=== PATIENT | male | born 1955 | race Caucasian/White ===

== ENCOUNTER 2016-09-06 09:59 | Observation (INO) | payer OTHER ==
[2016-09-06] VITALS (8 sets, daily range): BP systolic 122–141; BP diastolic 71–86; PULSE 77–90; RESP 14–22; TEMP 97.9–98.1; O2SAT 91–100
[~2016-09-06] VITALS: Ht 177.8 cm; Wt 85.0 kg
--- NOTE | 2016-09-06 11:26 | PD ---
HPI Chief Complaint: Cold / Flu Symptoms Time Seen by Provider: 11:10 Travel History International Travel<30 days: No Contact w/Intl Traveler<30days: No Traveled to known affect area: No History of Present Illness HPI 61-year-old male came to the emergency room with history of shortness of breath and chest pain. Says that at 4 in the morning today he was woken up by a violent coughing episode. Since then he has been short of breath especially on exertion associated with substernal chest pain. He has never had these symptoms in the past. He rates the pain 4 out of 10 in its a dull ache. Nothing makes the pain better or worse. Patient says that he is from [place] and they came to spend the winter here 2 weeks ago. He drove for 3 days from [place] in order to get here. No history of leg swelling or leg pain. Patient has history of high cholesterol and hypertension. No history of coronary artery disease. No history of stress test or any other workup for coronary artery disease in the past. He is not a smoker. 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 He last drank 11 PM last night. Oxygen saturation was 95% on room air in triage. COUNT INCLUDES THE [facility] Past Medical History Narrative Medical List of his past medical history as reviewed from the nursing note. High Cholesterol: Yes Hypertension: Yes Social History Alcohol Use: Yes (heavy drinker for 20-24 years) Tobacco Use: No Allergies-Medications (Allergen,Severity, Reaction): Coded Allergies: No Known Allergies (Unverified , 09/06/16) Comments No known drug allergies. Reported Meds & Prescriptions Reported Meds & Active Scripts Active Reported Lisinopril 10 Mg Tab 10 Mg PO DAILY Pravastatin 20 Mg Tab 20 Mg PO DAILY Inderal LA 24 HR (Propranolol HCl) 60 Mg Cap 60 Mg PO DAILY Narrative Medication I reviewed patient's medications with him. Awaiting for the nurse to do medical reconciliation. Review of Systems Except as stated in HPI: all other systems reviewed are Neg Physical Exam Narrative GENERAL: Awake, alert, anxious, mild distress SKIN: Warm and dry. HEAD: Atraumatic. Normocephalic. EYES: Pupils equal and round. No scleral icterus. No injection or drainage. ENT: No nasal bleeding or discharge. Mucous membranes pink and moist. NECK: Trachea midline. No JVD. CARDIOVASCULAR: Regular rate and rhythm. No murmur appreciated. RESPIRATORY: No accessory muscle use. Clear to auscultation. Breath sounds equal bilaterally. GASTROINTESTINAL: Abdomen soft, non-tender, nondistended. Hepatic and splenic margins not palpable. MUSCULOSKELETAL: No obvious deformities. No clubbing. No cyanosis. No edema. NEUROLOGICAL: Awake and alert. No obvious cranial nerve deficits. Motor grossly within normal limits. Normal speech. Fine tremors PSYCHIATRIC: Appropriate mood and affect; insight and judgment normal. Data Data Last Documented VS Vital Signs Date Time Temp Pulse Resp B/P Pulse Ox O2 Delivery O2 Flow Rate FiO2 09/06/16 12:38 77 22 125/78 99 Nasal Cannula 2.0 128/74 09/06/16 10:01 98.1 Orders Electrocardiogram (09/06/16 10:29) Basic Metabolic Panel (Bmp) (09/06/16 11:32) Ckmb (Isoenzyme) Profile (09/06/16 11:32) Complete Blood Count With Diff (09/06/16 11:32) Magnesium (Mg) (09/06/16 11:32) Prothrombin Time / Inr (Pt) (09/06/16 11:32) Act Partial Throm Time (Ptt) (09/06/16 11:32) Troponin I (09/06/16 11:32) Chest, Single Ap (09/06/16 11:32) Ecg Monitoring (09/06/16 11:32) Bilateral Bp Monitoring (09/06/16 11:32) Iv Access Insert/Monitor (09/06/16 11:32) Oximetry (09/06/16 11:32) Oxygen Administration (09/06/16 11:32) Sodium Chloride 0.9% Flush (Ns Flush) (09/06/16 11:45) Ct Pulmonary Angiogram (09/06/16 ) CKMB (09/06/16 13:30) CKMB% (09/06/16 13:30) Iohexol 350 Inj (Omnipaque 350 Inj) (09/06/16 15:00) Admit Order (Ed Use Only) (09/06/16 15:30) Labs Laboratory Tests Test 09/06/16 13:30 Prothrombin Time 11.6 SEC Prothromb Time International 1.0 RATIO Ratio Activated Partial 24.7 SEC Thromboplast Time Sodium Level 135 MEQ/L Potassium Level 3.9 MEQ/L Chloride Level 99 MEQ/L Carbon Dioxide Level 24.0 MEQ/L Anion Gap 12 MEQ/L Blood Urea Nitrogen 7 MG/DL Creatinine 0.87 MG/DL Estimat Glomerular Filtration 90 ML/MIN Rate Random Glucose 100 MG/DL Calcium Level 8.2 MG/DL Magnesium Level 1.7 MG/DL Total Creatine Kinase 148 U/L Creatine Kinase MB 0.5 NG/ML Troponin I LESS THAN 0.02 NG/ML White Blood Count 13.6 TH/MM3 Red Blood Count 4.17 MIL/MM3 Hemoglobin 13.7 GM/DL Hematocrit 39.3 % Mean Corpuscular Volume 94.4 FL Mean Corpuscular Hemoglobin 32.9 PG Mean Corpuscular Hemoglobin 34.9 % Concent Red Cell Distribution Width 12.8 % Platelet Count 160 TH/MM3 Mean Platelet Volume 8.5 FL Neutrophils (%) (Auto) 88.3 % Lymphocytes (%) (Auto) 5.5 % Monocytes (%) (Auto) 6.0 % Eosinophils (%) (Auto) 0.0 % Basophils (%) (Auto) 0.2 % Neutrophils # (Auto) 12.0 TH/MM3 Lymphocytes # (Auto) 0.7 TH/MM3 Monocytes # (Auto) 0.8 TH/MM3 Eosinophils # (Auto) 0.0 TH/MM3 Basophils # (Auto) 0.0 TH/MM3 CBC Comment DIFF FINAL Differential Comment MDM Medical Decision Making Medical Screen Exam Complete: Yes Emergency Medical Condition: Yes Medical Record Reviewed: Yes Interpretation(s) Twelve-lead EKG was reviewed by me. Normal sinus rhythm, normal axis, nonspecific ST-T wave changes. Heart rate of 77 bpm. Differential Diagnosis ACS, non-STEMI, PE, pneumonia, aspiration pneumonia Narrative Course 12:05 PM given the fact that patient had a long distance travel not too long ago PE is high on my list. I have ordered pulmonary angiogram. Awaiting for the blood test results and the CAT scan to be done and resulted. Patient is a high risk for alcohol withdrawal as well. He is not tachycardic and hypertensive currently however. However he does have some tremors. I'll watch him and if he does getting worse I will give him some benzo. I've explained this to the patient and he understands. 3:03 PM all the blood test results finally came back. Awaiting for the CAT scan to be done and resulted. Patient has leukocytosis with some left shift. Chest x-rays within normal limit. 3:[address] scan is negative for PE or pneumonia. I will admit him for chest pain rule out ACS and the chest pain center. Patient is not having any symptoms of withdrawal. He is comfortable with the admission. Procedures EKG Prior to Arrival: Yes Diagnosis Primary Impression: Chest pain Qualified Code: R07.9 - Chest pain, unspecified type Admitting Information Admitting Physician Requests: Observation Tulio Robbins MD Sep 06, 2016 11:26
[2016-09-06] MEDS ORDERED: SODIUM CHLORIDE 0.9% FLUSH 5 ML FLUSH IVF PRN (11:45)
[2016-09-06] MEDS ORDERED: LISI10TA3 PO (12:19)
[2016-09-06] MEDS ORDERED: PROP60 PO (12:19)
[2016-09-06] MEDS ORDERED: PRAV20TA2 PO (12:19)
--- NOTE | 2016-09-06 12:37 | RADRPT ---
EXAM DATE/TIME: 09/06/2016 11:41 [facility] COMPARISON: No previous studies available for comparison. INDICATIONS : Short of breath and coughing for one day, chest discomfort MEDICAL HISTORY : None. SURGICAL HISTORY : None. ENCOUNTER: Initial ACUITY: 1 day PAIN SCORE: 4/10 LOCATION: Bilateral chest FINDINGS: A single view of the chest demonstrates the lungs to be symmetrically aerated without evidence of mas s, infiltrate or effusion. The cardiomediastinal contours are unremarkable. Osseous structures are intact. CONCLUSION: No acute disease. There is no evidence of pneumonia. Jalen Dalal MD on September 06, 2016 at 12:35 Board Certified Radiologist. This report was verified electronically.
[2016-09-06 14:04] LABS: BASOPHIL % 0.2 % (0.0-2.0); HEMATOCRIT 39.3 % (39.0-51.0); HEMO FLAGS DIFF FINAL; LYMPH % 5.5 % (9.0-44.0); LYMPHOCYTE # 0.7 TH/MM3 (1.0-4.8); MEAN CELL VOLUME 94.4 FL (80.0-100.0); MEAN CORPUSCULAR HEMOGLOBIN 32.9 PG (27.0-34.0); MEAN CORPUSCULAR HGB CONC 34.9 % (32.0-36.0); NEUT % 88.3 % (16.0-70.0); PLATELET COUNT 160 TH/MM3 (150-450); RED BLOOD COUNT 4.17 MIL/MM3 (4.50-5.90); RED CELL DISTRIBUTION WIDTH 12.8 % (11.6-17.2); WHITE BLOOD COUNT 13.6 TH/MM3 (4.0-11.0)
[2016-09-06 14:06] LABS: APTT (PATIENT) 24.7 SEC (24.3-30.1); PROTHROMBIN TIME - PATIENT 11.6 SEC (9.8-11.6)
[2016-09-06 14:36] LABS: ANION GAP 12 MEQ/L (5-15); BLOOD UREA NITROGEN 7 MG/DL (7-18); CHLORIDE 99 MEQ/L (98-107); GLOMERULAR FILTRATION RATE 90 ML/MIN (>89); MAGNESIUM 1.7 MG/DL (1.5-2.5); POTASSIUM 3.9 MEQ/L (3.5-5.1); SODIUM (NA) 135 MEQ/L (136-145)
[2016-09-06 14:40] LABS: CREATINE KINASE 148 U/L (39-308)
[2016-09-06 14:52] LABS: CKMB 0.5 NG/ML (0.5-3.6)
[2016-09-06] MEDS ORDERED: IOHEXOL 350 MG/ML 10 ML VIAL (for RAD DIAG) IV ONE (15:00)
--- NOTE | 2016-09-06 15:16 | RADRPT ---
EXAM DATE/TIME: 09/06/2016 14:53 [facility] COMPARISON: No previous studies available for comparison. INDICATIONS : Coughing and chest discomfort today. IV CONTRAST: 50 cc Omnipaque 350 (iohexol) IV RADIATION DOSE: 11.85 CTDIvol (mGy) MEDICAL HISTORY : Hypertension. SURGICAL HISTORY : None. ENCOUNTER: Initial ACUITY: 1 day PAIN SCALE: 5/10 LOCATION: chest TECHNIQUE: Volumetric scanning of the chest was performed using a pulmonary embolism protocol MIP images were re constructed. Using automated exposure control and adjustment of the mA and/or kV according to patien t size, radiation dose was kept as low as reasonably achievable to obtain optimal diagnostic quality images. FINDINGS: PULMONARY ARTERIES: No filling defects are seen in the pulmonary arteries through the segmental level. LUNGS: Minimal groundglass density is seen just above the right hemidiaphragm and in the right gastroesophag eal recess which is probably postinflammatory. Minimal atelectatic changes or scarring posteriorly in the left base. Lungs are otherwise clear. PLEURAE: There is no pleural thickening or pleural effusion. MEDIASTINUM: There is good visualization of the great vessels of the middle mediastinum. No evidence of mediastin al or hilar adenopathy/mass. Atherosclerotic calcification of the coronary arteries. MUSCULOSKELETAL: Within normal limits for patient age. MISCELLANEOUS: The visualized upper abdominal organs demonstrate no acute abnormality. However, the liver is markedl y attenuated characteristic of fatty infiltration CONCLUSION: 1. No acute infiltrate or pulmonary embolus to explain current clinical symptoms. 2. Minimal groundglass density above the right hemidiaphragm and in the azygos esophageal recess is p robably post inflammatory. Atelectasis or scarring posteriorly in the left base. I would recommend a followup noncontrasted CT scan of the chest in 6 months to ensure stability, however. 3. Diffuse hepatic fatty infiltration. Nakul David MD on September 06, 2016 at 15:10 Board Certified Radiologist. This report was verified electronically.
[2016-09-06] MEDS ORDERED: ONDANSETRON HCL 4 MG/2 ML VIAL IV PRN (16:15)
[2016-09-06] MEDS ORDERED: NITROGLYCERIN 0.4 MG SL 25 TABS/BTL SL PRN (16:15)
[2016-09-06] MEDS ORDERED: ACETAMINOPHEN 500 MG CPLT PO PRN (16:15)
--- NOTE | 2016-09-06 17:02 | EKG ---
Date Performed: 09/06/2016 Time Performed: 10:29:24 PTAGE: 61 years EKG: Sinus rhythm WITH SINUS ARRHYTHMIA LOW QRS VOLTAGE IN EXTREMITY LEADS BORDERLINE ECG PREVIOUS TRACING : 09/06/2016 10.28 DOCTOR: Tre Patton Interpretating Date/Time 09/06/2016 16:59:21
[2016-09-06 18:00] LABS: CREATINE KINASE 115 U/L (39-308)
[2016-09-06] MEDS ORDERED: LORazepam 2 MG/ML VIAL IV PRN (18:00)
[2016-09-06 18:14] LABS: CKMB LESS THAN 0.5 NG/ML (0.5-3.6)
--- NOTE | 2016-09-06 18:20 | HHI.HP ---
HPI Primary Care Physician Primary physician is in [place] Chief Complaint Chest pain and shortness of breath History of Present Illness 61-year-old patient who is visiting from [place] presents to the emergency room with an onset of "violent coughing and shortness of breath" approximately 4 :00 this morning. Shortly after his coughing episode he developed substernal "aching and tightness" severity as 6 out of 10 currently his chest discomfort is a 2 out of 10. There is no radiation. No known relieving factors, precipitating factors is coughing. Pain has not gone away although is improved. He has not had chest pain in the past nor has he had a recent stress test. He does endorse he has been coughing for the past few weeks generally in the morning after a hot shower coughing episodes last a few minutes. His cough is nonproductive. Review of Systems General: No fatigue,weakness, fever, chills, or recent illness change in appetite. He has recently traveled from [place], took him [address] here[address] HEENT: No MALONEY, no vision changes, no nasal congestion or drainage, no dysphasia CV: Continues to have chest discomfort as described above. No chest pressure, palpitations, intermittent leg pain, dizziness RESP: No current SOB, reports intermittent cough mostly in the mornings after a hot shower this is nonproductive, denies wheeze, hemoptysis, or known COPD or asthma GI: No nausea or vomiting, bowel changes, diarrhea, pain, distention, melena, blood in the stool. No change in appetite, no unintentional weight gain or weight loss : No dysuria EXT: No lower leg edema, no parathesias MS: No discomfort or change in ROM NEURO: No change in memory, dizziness, difficulty with balance, LOC, motor/ sensory deficits PSYCH: No anxiety, depression SKIN: No rashes, no concerning lesions Past Family Social History Allergies: Coded Allergies: No Known Allergies (Unverified , 09/06/16) Past Medical History Hypertension Hyperlipidemia Past Surgical History None Reported Medications Lisinopril 10 mg daily Inderal extended release 60 mg daily Pravastatin 20 mg daily Family History Father had quadruple bypass in his mid 50s, no other family early onset cardiovascular disease Social History He quit smoking tobacco over 30 years ago he denies any illegal drug use, endorses drinking 10-15 beers daily with last drink approximately 11 PM last evening. Denies any known diabetes, does have hypertension and hyperlipidemia. He is visiting from [place] he is retiring from [employer] [[email or web address]] and will be officially retired in September he is helping a friend move to the area. Past cardiac testing He has not had any recent cardiac testing. He has had a exercise stress test years ago for a physical exam for work which was unremarkable. Physical Exam Vital Signs Vital Signs Date Time Temp Pulse Resp B/P Pulse Ox O2 Delivery O2 Flow Rate FiO2 09/06/16 15:36 90 21 141/86 98 Nasal Cannula 2.0 09/06/16 12:38 77 22 125/78 99 Nasal Cannula 2.0 128/74 09/06/16 12:35 77 22 125/78 100 Nasal Cannula 2.0 09/06/16 12:15 Nasal Cannula 2.0 09/06/16 12:15 97 Room Air 09/06/16 12:14 95 Room Air 09/06/16 10:01 98.1 80 14 122/71 91 Room Air Physical Exam GENERAL: Alert WN, WD, NAD, pleasant, male HEAD: NC, AT EYES: Sclera clear, conjunctiva without injection, pupils equal and round ENT: Mucous membranes pink and moist, no nasal discharge or bleeding NECK: Supple, no masses, trachea midline CV: RRR, without murmur, rub, gallop, no JVD, S1-S2 no S3-S4. No carotid bruits RESP: Clear lungs upper bilateral and diminished bilateral bases, no crackles, wheeze, rhonchi, symmetrical chest rise, nonlabored, able to speak in full sentences ABD: Soft, NT, ND, no masses, central obesity, positive bowel tones negative Jimenes's sign BACK: no scoliosis EXT: Pulses +24, no dependent edema MS: Normal tone 4 extremities, nontender, no obvious deformities, full range of motion NEURO: CN II through CN XII grossly intact, motor strength 5/5, gait WNL, faint tremors in upper extremities PSYCH: A+O 3, pleasant affect, mildly anxious, appropriate speech, appropriate mood and affect, insight and judgment SKIN: Normal turgor, normal texture, no lesions, no rashes Laboratory Laboratory Tests Test 09/06/16 09/06/16 13:30 17:00 White Blood Count 13.6 Red Blood Count 4.17 Hemoglobin 13.7 Hematocrit 39.3 Mean Corpuscular Volume 94.4 Mean Corpuscular Hemoglobin 32.9 Mean Corpuscular Hemoglobin 34.9 Concent Red Cell Distribution Width 12.8 Platelet Count 160 Mean Platelet Volume 8.5 Neutrophils (%) (Auto) 88.3 Lymphocytes (%) (Auto) 5.5 Monocytes (%) (Auto) 6.0 Eosinophils (%) (Auto) 0.0 Basophils (%) (Auto) 0.2 Neutrophils # (Auto) 12.0 Lymphocytes # (Auto) 0.7 Monocytes # (Auto) 0.8 Eosinophils # (Auto) 0.0 Basophils # (Auto) 0.0 CBC Comment DIFF FINAL Differential Comment Prothrombin Time 11.6 Prothromb Time International 1.0 Ratio Activated Partial 24.7 Thromboplast Time Sodium Level 135 Potassium Level 3.9 Chloride Level 99 Carbon Dioxide Level 24.0 Anion Gap 12 Blood Urea Nitrogen 7 Creatinine 0.87 Estimat Glomerular Filtration 90 Rate Random Glucose 100 Calcium Level 8.2 Magnesium Level 1.7 Total Creatine Kinase 148 115 Creatine Kinase MB 0.5 Troponin I LESS THAN 0.02 LESS THAN 0.02 Result Diagram: 09/06/16 1330 09/06/16 1330 Imaging Last Impressions Chest X-Ray 09/06/16 1132 Signed Impressions: Service Date/Time: Tuesday, September 06, 2016 11:41 - CONCLUSION: No acute disease. There is no evidence of pneumonia. Jalen Dalal MD CT Angiography 09/06/16 0000 Signed Impressions: Service Date/Time: Tuesday, September 06, 2016 14:53 - CONCLUSION: 1. No acute infiltrate or pulmonary embolus to explain current clinical symptoms. 2. Minimal groundglass density above the right hemidiaphragm and in the azygos esophageal recess is probably post inflammatory. Atelectasis or scarring posteriorly in the left base. I would recommend a followup noncontrasted CT scan of the chest in 6 months to ensure stability, however. 3. Diffuse hepatic fatty infiltration. Nakul David MD Course First EKG, normal sinus rhythm, without st-t segment changes Assessment and Plan Assessment and Plan #1 Chest pain-patient has been admitted to the chest pain center he will be ruled out with 3 sets of EKGs and cardiac enzymes. He will be seen and evaluated by Dr. Isidro Medrano in a.m. and this is been discussed with patient and he is agreeable to this plan of care. Discussed the likelihood due to his multiple risk factors geophysicist may request further cardiac testing such as a treadmill stress test. Patient is agreeable to this plan of care. #2 EtOH abuseAtivan 1 mg every 2 hours when necessary will be ordered. Patient has been encouraged to notify nursing of feelings of anxiety and/or withdrawal. Patient does not feel that he will require medication for withdrawal, although states understanding. #3 Chronic cough-discuss results of CT angiogram with patient as radiologist is encouraging a follow-up CT of his chest in 6 months. Patient does have a primary care provider in [place] and he will follow-up accordingly. #4 Hypertensionwe'll reorder his lisinopril and Inderal as previously ordered #5 Hyperlipidemiareorder pravastatin Gwendolyn Toussaint Sep 06, 2016 18:20
[2016-09-06] MEDS ORDERED: RESP: ALBUTEROL 2.5 MG/3 ML NEB (PRN) NEB (18:30)
[2016-09-06] MEDS: SODIUM CHLORIDE 0.9% FLUSH 5 ML FLUSH IVF SCH (20:38)
[2016-09-06] MEDS: PROPRANOLOL HCL LA 60 MG CAP PO SCH (20:38)
[2016-09-06] MEDS: LISINOPRIL 10 MG TAB PO SCH (20:38)
[2016-09-06] MEDS: PRAVASTATIN SOD 20 MG TAB PO SCH (20:38)
[2016-09-06 21:46] LABS: CREATINE KINASE 106 U/L (39-308)
[2016-09-06 21:58] LABS: CKMB LESS THAN 0.5 NG/ML (0.5-3.6)
[2016-09-06] MEDS: RESP: ALBUTEROL 2.5 MG/3 ML NEB (SCH) NEB (22:00)
[2016-09-07] VITALS: BP 142/78; PULSE 68; RESP 18; TEMP 98.8; O2SAT 98
[2016-09-07 00:31] VITALS: PULSE 69
[2016-09-07 03:24] VITALS: PULSE 61
[2016-09-07] MEDS: RESP: ALBUTEROL 2.5 MG/3 ML NEB (SCH) NEB ×2 (03:48→08:18)
[2016-09-07 07:09] VITALS: PULSE 65
[2016-09-07] MEDS: LISINOPRIL 10 MG TAB PO SCH (08:52)
[2016-09-07] MEDS: SODIUM CHLORIDE 0.9% FLUSH 5 ML FLUSH IVF SCH (08:52)
[2016-09-07] MEDS: PROPRANOLOL HCL LA 60 MG CAP PO SCH (08:52)
[2016-09-07] MEDS: PRAVASTATIN SOD 20 MG TAB PO SCH (08:52)
[2016-09-07] MEDS ORDERED: ASPIRIN 325 MG TAB PO SCH (09:00)
[2016-09-07 09:23] VITALS: BP 124/79; PULSE 91; RESP 20; TEMP 97.8; O2SAT 95
--- NOTE | 2016-09-07 10:10 | HHI.DCPOC ---
Discharge Care Plan Diagnosis: (1) Chest pain (2) Hyperlipidemia (3) Hypertension (4) Abnormal CT scan, chest Goals to Promote Your Health WILL NEED TO HAVE A REPEAT CT SCAN OF CHEST IN 6 MONTHS. * To prevent worsening of your condition and complications * To maintain your health at the optimal level Directions to Meet Your Goals Take your medications as prescribed Follow your dietary instruction Follow activity as directed Keep your appointments as scheduled Take your immunizations and boosters as scheduled If your symptoms worsen call your PCP, if no PCP go to Urgent Care Center or Emergency Room Smoking is Dangerous to Your Health. Avoid second hand smoke Call the 24-hour hour crisis hotline for domestic abuse at Trey Molina Sep 07, 2016 10:10
--- NOTE | 2016-09-07 12:42 | PD.CARD.PN ---
Subjective Subjective Remarks Offers no new complaints. Objective Vital Signs / I&O Vital Signs Date Time Temp Pulse Resp B/P Pulse Ox O2 Delivery O2 Flow Rate FiO2 09/07/16 09:23 97.8 91 20 124/79 95 09/07/16 07:09 65 09/07/16 03:24 61 09/07/16 00:31 69 09/07/16 00:00 98.8 68 18 142/78 98 09/06/16 22:10 95 09/06/16 21:03 84 09/06/16 20:09 97.9 80 21 129/73 98 09/06/16 15:36 90 21 141/86 98 Nasal Cannula 2.0 Physical Exam General: No apparent distress. Cardiovascular: Regular rate and rhythm without murmur gallop or rub. Respiratory: Clear to auscultate. Laboratory Laboratory Tests Test 09/06/16 09/06/16 09/06/16 13:30 17:00 20:46 White Blood Count 13.6 TH/MM3 Red Blood Count 4.17 MIL/MM3 Hemoglobin 13.7 GM/DL Hematocrit 39.3 % Mean Corpuscular Volume 94.4 FL Mean Corpuscular Hemoglobin 32.9 PG Mean Corpuscular Hemoglobin 34.9 % Concent Red Cell Distribution Width 12.8 % Platelet Count 160 TH/MM3 Mean Platelet Volume 8.5 FL Neutrophils (%) (Auto) 88.3 % Lymphocytes (%) (Auto) 5.5 % Monocytes (%) (Auto) 6.0 % Eosinophils (%) (Auto) 0.0 % Basophils (%) (Auto) 0.2 % Neutrophils # (Auto) 12.0 TH/MM3 Lymphocytes # (Auto) 0.7 TH/MM3 Monocytes # (Auto) 0.8 TH/MM3 Eosinophils # (Auto) 0.0 TH/MM3 Basophils # (Auto) 0.0 TH/MM3 CBC Comment DIFF FINAL Differential Comment Prothrombin Time 11.6 SEC Prothromb Time International 1.0 RATIO Ratio Activated Partial 24.7 SEC Thromboplast Time Sodium Level 135 MEQ/L Potassium Level 3.9 MEQ/L Chloride Level 99 MEQ/L Carbon Dioxide Level 24.0 MEQ/L Anion Gap 12 MEQ/L Blood Urea Nitrogen 7 MG/DL Creatinine 0.87 MG/DL Estimat Glomerular Filtration 90 ML/MIN Rate Random Glucose 100 MG/DL Calcium Level 8.2 MG/DL Magnesium Level 1.7 MG/DL Total Creatine Kinase 148 U/L 115 U/L 106 U/L Creatine Kinase MB 0.5 NG/ML LESS THAN 0.5 LESS THAN 0.5 NG/ML NG/ML Troponin I LESS THAN 0.02 LESS THAN 0.02 LESS THAN 0.02 NG/ML NG/ML NG/ML Assessment and Plan Assessment and Plan Will get Grey protocol ETT. Trey Molina Sep 07, 2016 12:42
--- NOTE | 2016-09-07 16:04 | EKG ---
Date Performed: 09/06/2016 Time Performed: 20:05:11 PTAGE: 61 years EKG: Sinus rhythm NORMAL ECG PREVIOUS TRACING : 09/06/2016 17.02 Since previous tracing, no significant change noted DOCTOR: Isidro Medrano Interpretating Date/Time 09/07/2016 16:02:09
--- NOTE | 2016-09-07 16:05 | EKG ---
Date Performed: 09/06/2016 Time Performed: 17:02:04 PTAGE: 61 years EKG: Sinus rhythm LOW QRS VOLTAGE IN EXTREMITY LEADS BORDERLINE ECG PREVIOUS TRACING : 09/06/2016 10.29 Since previous tracing, no significant change noted DOCTOR: Isidro Medrano Interpretating Date/Time 09/07/2016 16:02:31
--- NOTE | 2016-09-07 16:07 | TR ---
Date Performed: 09/07/2016 Time Performed: 08:00:29 DOCTOR: Isidro Medrano DRUG LIST: CLINICAL HISTORY: CHEST PAIN REASON FOR TEST: Chest pain REASON FOR ENDING: OBSERVATION: CONCLUSION: KONG PROTOCOL. NO CP. TEST STOPPED AFTER EXCEEDING GOAL HR SECONDARY TO SOB AND LEG FATIGUE.Maximum DG=174 % Max HR Achieved=90.0% Maximum UA=269/70 Total Exercise Time=7:03 COMMENTS: Patient exercised using the Kong protocol. No electrocardiographic changes were seen to suggest ischemia. Hemodynamic response to exercise was normal. No significant arrhythmia was prese nt.
== END 2016-09-07 11:15 | disposition home or self-care (01) ==
LOC: NEPB 09:59 → NEDA 15:32 → NEPHCDU 18:12
PROVIDERS: ADMIT Internal Medicine Interventional Cardiology; ATTEND Internal Medicine Interventional Cardiology
DX: R07.9 Chest pain, unspecified (principal); I10 Essential (primary) hypertension; E78.5 Hyperlipidemia, unspecified; E78.00 Pure hypercholesterolemia, unspecified; R91.8 Other nonspecific abnormal finding of lung field; D72.829 Elevated white blood cell count, unspecified; F10.10 Alcohol abuse, uncomplicated; J98.11 Atelectasis; Z87.891 Personal history of nicotine dependence
CPT/HCPCS: 71010; 71275; 80048; 82550; 82552; 83735; 84484; 85025; 85610; 85730; 93005; 93017; 94640; 94664; 99285; G0378; J7613; Q9967